=== PATIENT | male | born 1960 | race Caucasian/White ===

== ENCOUNTER → 2018-03-27 | Outpatient (REF) | payer OTHER ==
[2018-03-28 11:13] LABS: BASO # 0.1 10^3/uL (0.0-0.2); BASO % 0.7 % (0.0-1.0); EOS # 0.1 10^3/uL (0.0-0.50); EOS % 0.9 % (0.0-3.0); HEMATOCRIT 48.3 % (42.0-52.0); LYMPH # 1.5 10^3/uL (1.5-4.5); LYMPH % 14.2 % (24.0-44.0); MEAN CORPUSCULAR HGB CONC 33.1 g/dl (32.0-36.5); MEAN CORPUSCULAR VOLUME 99.6 fl (80.0-96.0); MONO # 0.8 10^3/uL (0.0-0.8); MONO % 7.6 % (0.0-5.0); NEUTROPHILS # 8.2 10^3/uL (1.8-7.7); NEUTROPHILS % 76.4 % (36.0-66.0); PLATELET COUNT, AUTOMATED 275 10^3/uL (150-450); RED BLOOD COUNT 4.85 10^6/uL (4.30-6.10); WHITE BLOOD COUNT 10.8 10^3/uL (4.0-10.0)
[2018-03-28 11:23] LABS: ALBUMIN 4.4 GM/DL (3.2-5.2); ALT/SGPT 31 U/L (12-78); BILIRUBIN,TOTAL 0.4 MG/DL (0.2-1.0); BLOOD UREA NITROGEN 20 MG/DL (7-18); CALCIUM LEVEL 9.3 MG/DL (8.8-10.2); CARBON DIOXIDE LEVEL 28 MEQ/L (21-32); CHLORIDE LEVEL 102 MEQ/L (98-107); CHOLESTEROL LEVEL 186 MG/DL (<200); GLOMERULAR FILTRATION RATE > 60.0 (>49); GLUCOSE, FASTING 87 MG/DL (70-100); HDL CHOLESTEROL 40 MG/DL (>40); LDL CHOLESTEROL 122 MG/DL (<100); NON-HDL-C 146 MG/DL; POTASSIUM SERUM 4.9 MEQ/L (3.5-5.1); SODIUM LEVEL 138 MEQ/L (136-145); TOTAL PROTEIN 7.6 GM/DL (6.4-8.2); TRIGLYCERIDES LEVEL 119 MG/DL (<150)
[2018-03-28 11:34] LABS: ERYTHROCYTE SEDIMENTATION RATE 4 mm/hr (0-20)
[2018-03-29 11:00] LABS: HEPATITIS C VIRUS ABY INDEX 0.1 INDEX (<0.8)
== END ==
LOC: M SFHCCLAY 15:07
PROVIDERS: ATTEND Family Medicine
DX: Z12.5 Encounter for screening for malignant neoplasm of prostate (principal); Z11.59 Encounter for screening for other viral diseases; Z13.220 Encounter for screening for lipoid disorders; M25.551 Pain in right hip

== ENCOUNTER → 2018-03-27 | Outpatient (CLI) | payer OTHER ==
--- NOTE | 2018-03-28 01:12 | REP ---
Clinical: Right hip pain. Technique: Neutral and frog lateral views of the right hip. Findings: Early moderate arthritic changes include increased sclerosis to the acetabulum with associated joint space narrowing and marginal spurring. Osteophyte formation along the inferior margin of the femoral head is also best identified on the frog lateral view. No significant periarticular calcifications. No obvious effusion. Surrounding soft tissues are unremarkable. No obvious acute fracture. Impression: Early moderate arthritic changes.
== END ==
LOC: M CLY 15:28
PROVIDERS: ATTEND Family Medicine
DX: M16.11 Unilateral primary osteoarthritis, right hip (principal); M25.751 Osteophyte, right hip; M25.551 Pain in right hip

== ENCOUNTER → 2020-01-28 | Outpatient (CLI) | payer OTHER ==
[2020-01-28 08:43] LABS: HEMATOCRIT 50.2 % (42.0-52.0); HEMOGLOBIN 16.3 g/dl (13.5-17.5); MEAN CORPUSCULAR HEMOGLOBIN 31.7 pg (27.0-33.0); MEAN CORPUSCULAR HGB CONC 32.5 g/dl (32.0-36.5); MEAN CORPUSCULAR VOLUME 97.7 fl (80.0-96.0); PLATELET COUNT, AUTOMATED 273 10^3/uL (150-450); RED BLOOD COUNT 5.14 10^6/uL (4.30-6.10); WHITE BLOOD COUNT 10.1 10^3/uL (4.0-10.0)
[2020-01-28 08:54] LABS: INR 0.88; PROTHROMBIN TIME 12.1 SECONDS (12.5-14.3)
[2020-01-28 09:01] LABS: ERYTHROCYTE SEDIMENTATION RATE 1 mm/hr (0-20)
[2020-01-28 09:26] LABS: ALBUMIN 4.1 GM/DL (3.2-5.2); ALT/SGPT 40 U/L (12-78); BILIRUBIN,TOTAL 0.7 MG/DL (0.2-1.0); BLOOD UREA NITROGEN 22 MG/DL (7-18); CALCIUM LEVEL 9.3 MG/DL (8.8-10.2); CARBON DIOXIDE LEVEL 29 MEQ/L (21-32); CHLORIDE LEVEL 103 MEQ/L (98-107); GLOMERULAR FILTRATION RATE > 60.0 (>49); GLUCOSE, FASTING 100 MG/DL (70-100); POTASSIUM SERUM 4.7 MEQ/L (3.5-5.1); SODIUM LEVEL 137 MEQ/L (136-145); TOTAL PROTEIN 7.2 GM/DL (6.4-8.2)
--- NOTE | 2020-01-28 15:17 | REP ---
INDICATION: RIGHT TOTAL HIP ARTHROPLASTY/PREOP/LAB COMPARISON: 04/06/2014 TECHNIQUE: PA and lateral. FINDINGS: Mediastinum and cardiac silhouette are normal. Lung cooper demonstrate chronic interstitial changes. No focal consolidation, effusion, or pneumothorax. Skeletal structures intact. 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 No focal consolidation or effusion. <Electronically signed by Tiago Juarez > 01/28/20 0524
== END ==
LOC: M LAB 08:15
PROVIDERS: ATTEND Orthopaedic Surgery
DX: Z01.818 Encounter for other preprocedural examination (principal); M16.11 Unilateral primary osteoarthritis, right hip; R93.89 Abnormal findings on diagnostic imaging of other specified body structures

== ENCOUNTER → 2020-02-07 | Outpatient (CLI) | payer OTHER ==
[~2020-02-07] MED LIST: IBUP200C29 PO; PERC5TAB12 PO; XARE10TA PO
== END ==
LOC: M LABSMTC 08:24
PROVIDERS: ATTEND Anesthesiology
DX: Z01.812 Encounter for preprocedural laboratory examination (principal); Z20.828 Contact with and (suspected) exposure to other viral communicable diseases

== ENCOUNTER 2020-02-11 07:35 | Inpatient (IN) | payer OTHER ==
--- NOTE | 2020-02-03 14:42 | HPE ---
DATE OF ANTICIPATED ADMISSION: 02/11/2020. ATTENDING PHYSICIAN: Dr. Eloy Mckinney. CHIEF COMPLAINT: Right hip pain and stiffness. HISTORY OF PRESENT ILLNESS: This is a 60-year-old male patient with progressively worsening right hip pain and stiffness who has failed to improve with conservative management. He has elected for surgery for his continued symptoms. He has pain with weightbearing activities and activities of daily living. He has been consented by Dr. Eloy Mckinney for a right total hip arthroplasty. X-rays notable for end-stage degenerative changes of the right hip. Medical optimization not present for review. MEDICAL CONDITIONS: Symptomatic osteoarthritis of right hip. SURGICAL PROCEDURES: A knee scope. ALLERGIES: No known drug allergies. CURRENT MEDICATIONS: [id number] Motrin; he knows to discontinue that at least five days prior to surgery. FAMILY HISTORY: Arthritis and cancer. REVIEW OF SYSTEMS: Denies chest pain, shortness of breath or cough. Denies difficulty breathing. Denies abdominal pain. Denies nausea or vomiting. Notes persistent hip with weightbearing activities on the right side. Denies exposure to COVID-19. SOCIAL HISTORY: He does not smoke. He does occasionally use alcohol. PHYSICAL EXAMINATION TODAY: Reveals a well-nourished, well developed male patient who walks with a limping gait, he favors his right side. There is decreased external rotation on exam. Internal rotation is essentially zero. Straight leg raise testing is negative. Calf is soft and nontender to palpation. Skin around the hip is intact. No erythema, edema or ecchymosis. Neck is supple, without adenopathy or JVD. Lungs; clear to auscultation, without rales or wheeze. Heart; regular rate and rhythm. Abdomen; bowel sounds are present. Current vital signs; height 76 inches, weight 233 pounds, temperature 97.5, blood pressure 132/76, pulse 80, respirations 16. LABORATORY DATA: PT 12.1, INR 0.88, sed rate 1. WBC 10, RBC 5, hemoglobin 16.3, hematocrit 50.2. Glucose 100, BUN 22, creatinine 1.1, sodium 137, potassium 4.7. IMAGING STUDIES: Chest x-ray; not present for review. EKG; sinus rhythm. IMPRESSION: Symptomatic osteoarthritis of right hip. PLAN: He is consented by Dr. Mckinney for a right total hip arthroplasty. We reviewed his postoperative and preoperative instructions to include importance of n.p.o., what n.p.o. means, discontinue all NSAIDs five days prior to surgery, and make sure to call the day before to find out what time he needs to be there. We discussed also the importance of being on time. He also needs to self quarantine after his COVID testing. He understands the surgical procedure. He understands his instructions. All of his questions were answered. ANDI
[2020-02-11] VITALS (7 sets, daily range): BP systolic 114–144; BP diastolic 48–76
[~2020-02-11] VITALS: Ht 193 cm; Wt 106.6 kg
[~2020-02-11 07:35] MED LIST changes: +BUPIVACAINE LIPOSOME/PF 1.3% 20ML VIAL (13.3MG/ML)(EXPAREL)(C9290 PER1MG) As Ordered ONE; +EPINEPHrine INJ 1 MG/ML 1ML AMP As Ordered ONE; +LR 1,000 ML IV ONE; -PERC5TAB12 PO; +TRANEXAMIC ACID 100 MG/ML 10ML VIAL As Ordered ONE; -XARE10TA PO; +ceFAZolin 1GM VIAL (J0690 PER 500MG) As Ordered ONE; +ceFAZolin SOD 2 GM in IV 1 EA IV ONE
[2020-02-11] MEDS ORDERED: BUPIVACAINE HCL 0.25% 10ML VIAL As Ordered ONE (09:46)
--- NOTE | 2020-02-11 09:55 | IPN ---
PROGRESS NOTE DATE: 02/11/2020 SUBJECTIVE: The patient is seen and examined and he wishes to go ahead with a right total knee arthroplasty. He understands the nature of the procedure, the risks of bleeding, infection, damage to nerves or vessels, persistent pain, wear, loosening, dislocation, leg length inequality, blood clots, medical problems, and among others.
[2020-02-11] MEDS ORDERED: ONDANSETRON 4MG/2ML VIAL As Ordered ONE (10:40)
[2020-02-11] MEDS ORDERED: ROCURONIUM BROMIDE 50 MG/5 ML VIAL As Ordered ONE (10:40)
[2020-02-11] MEDS ORDERED: propofoL 200 MG/20 ML VIAL As Ordered ONE (10:40)
[2020-02-11] MEDS ORDERED: MIDAZOLAM INJ 2MG/2ML VIAL (J2250 PER 1MG) As Ordered ONE (10:40)
[2020-02-11] MEDS ORDERED: fentaNYL 100 MCG/2 ML INJECTION (J3010) As Ordered ONE (10:40)
[2020-02-11] MEDS ORDERED: LIDOCAINE 2% 100MG/5ML SDV (FOR ANES.) As Ordered ONE (10:40)
[2020-02-11] MEDS ORDERED: METOCLOPRAMIDE INJ 10MG/2ML VIAL (J2765 PER 1) As Ordered ONE (10:41)
[2020-02-11] MEDS ORDERED: KETOROLAC 60MG 2ML VIAL As Ordered ONE (10:42)
[2020-02-11] MEDS ORDERED: dexameTHASONE 4 MG/ML 1ML VIAL (J1100 PER 1MG) As Ordered ONE (10:42)
[2020-02-11] MEDS ORDERED: PHENYLephrine HCL 500 MCG/5 ML (100MCG/ML) SYRINGE (J2370) As Ordered ONE (10:58)
[2020-02-11] MEDS ORDERED: ePHEDrine SULFATE 25 MG/5 ML(5MG/ML) SYRINGE As Ordered ONE (10:58)
[2020-02-11] MEDS ORDERED: SUGAMMADEX SODIUM 500 MG/5 ML VIAL (BRIDION) As Ordered ONE (11:02)
[2020-02-11] MEDS ORDERED: MORPHINE 4 MG/ML 1ML VIAL/SYRINGE (J2270) IV PRN (12:45)
[2020-02-11] MEDS ORDERED: PERCOCET 5MG/325MG TAB PO PRN (12:45)
[2020-02-11] MEDS ORDERED: ACETAMINOPHEN TAB 650MG DOSE (2X325MG) PO PRN (12:45)
[2020-02-11] MEDS ORDERED: METOCLOPRAMIDE INJ 10MG/2ML VIAL (J2765 PER 1) IV PRN (12:45)
[2020-02-11] MEDS ORDERED: fentaNYL 100 MCG/2 ML INJECTION (J3010) IV PRN (12:45)
[2020-02-11] MEDS: LR 1,000 ML IV SCH (12:45)
[2020-02-11] MEDS ORDERED: ONDANSETRON 4MG/2ML VIAL IV PRN ×2 (12:45)
[2020-02-11] MEDS ORDERED: LR 1,000 ML IV SCH (12:45)
[2020-02-11] MEDS ORDERED: MORPHINE 2 MG/ML 1ML VIAL (J2270) IV PRN (12:45)
--- NOTE | 2020-02-11 12:53 | REP ---
INDICATION: POST OP IN PACU COMPARISON: None. TECHNIQUE: AP and cross-table lateral views. FINDINGS: The patient is noted to be status post right hip arthroplasty with normal appearance and positioning to the femoral and acetabular components. Overlying postsurgical changes are appreciated. IMPRESSION: Status post right hip arthroplasty. <Electronically signed by Tiago Juarez > 02/11/20 [id number]
--- NOTE | 2020-02-11 13:58 | RO ---
OPERATIVE NOTE PREOPERATIVE DIAGNOSIS: Right hip osteoarthritis. POSTOPERATIVE DIAGNOSIS: Right hip osteoarthritis. PROCEDURE: Right total hip arthroplasty using a Harnett size 8 high-offset, +1.5, 40 ceramic ball and 58 acetabular component. SURGEON: Eloy Mckinney M.D. WIRE DRAWING MACHINE TENDER: Toro Gibson PA-C ANESTHESIA: Spinal followed by general. ESTIMATED BLOOD LOSS: 200. COMPLICATIONS: None. PROCEDURE: The patient was taken to the operating room and placed in the supine position. After spinal anesthesia was induced, the spinal was not effective enough so he was converted to a general. We then turned him to the left lateral decubitus position on the Wilson positioner. All areas were padded appropriately. The right hip was prepped and draped in the usual sterile fashion. A timeout was performed and a longitudinal incision was made over the lateral aspect of the right hip. Sharp dissection was carried down through the subcutaneous tissue and exposed the fascia judy. I then incised the fascia judy and exposed the abductors. Anterior 40% or so of the abductors were divided off as we externally rotated the femur and exposed the hip and dislocated without too much difficulty. I then used the canal initiating reamer, the canal finding reamer and the lateralizing reaming on the femoral side and then sequentially reamed up to a size 8 which had good purchase. The neck cut was then made at about 3/4 of a fingerbreadth up from the lesser trochanter. We directed our attention was to the acetabulum. Anterior and posterior retractors were placed. We removed soft tissue from around the acetabulum and then sequentially reamed up to a size 57 which had excellent bleeding bone and very solid bone. There was evidence of anterior and posterior osteophytes. I irrigated, then impacted in the cup. I had medialized it some. The cup was impacted in an appropriate amount of anteversion and horizontal tilt. A size 58 was used. I then placed the acetabular liner which was a 58 x 40, impacted this in placed and then removed any osteophytes anteriorly and posteriorly which were actually surprisingly small, more substantial posteroinferiorly. The canal was then prepared. I sequentially broached up to a size 8 which I was able to get almost seated down to the neck cut but I had an excellent fit and fill and then I trialed off this several times with various neck and offset combinations and decided on a high offset, +1.5. We then removed the trial components, irrigated again as I had multiple times and impacted in the size 8 high offset stem which I was able to get seated down to the previous level of the broach. I dried the Lauren taper and placed a +1.5/40 ceramic head, impacted this in place, made sure it was well seated. We then reduced the hip and put the hip through a range of motion and I was very pleased as I was with the trial components with the stability and range of motion. Soft tissue's tension seemed appropriate. He had excellent stability of flexion, internal rotation and extension, external rotation with about 1-2 mm of shuck. The wound was then copiously irrigated. I then repaired the minimus with #1 Vicryl suture and the abductor with #1 Vicryl suture with a solid repair noted. I then placed the Exparel and the TXA deep in the wound and then irrigated again following a couple minutes. We closed the fascia judy with #1 Vicryl suture in running Stratafix. The wound was irrigated. The subcu was closed with 2-0 Vicryl and the skin with thom. A sterile dressing was applied and he was taken to the recovery room in stable condition. There were no known complications. The plan will be routine postop. The topographical field assistant was instrumental in holding retractors and assisting in reducing and dislocating the hip and assisting in wound closure.
[2020-02-11] MEDS ORDERED: MORPHINE 2 MG/ML 1ML VIAL (J2270) IV ONE (17:15)
[2020-02-11] MEDS: CYCLOBENZAPRINE 10MG TABLET PO PRN (17:27)
[2020-02-11] MEDS ORDERED: KETOROLAC 30 MG/ML 1ML VIAL IV ONE (17:30)
[2020-02-11] MEDS: ceFAZolin SOD 2 GM in IV 1 EA IV SCH (18:28)
[2020-02-11] MEDS: PERCOCET 5MG/325MG TAB PO PRN (18:29)
[2020-02-12] MEDS: PERCOCET 5MG/325MG TAB PO PRN ×6 (00:47→22:05)
[2020-02-12] MEDS: ceFAZolin SOD 2 GM in IV 1 EA IV SCH (00:48)
[2020-02-12] MEDS: LR 1,000 ML IV SCH (03:03)
[2020-02-12 05:53] LABS: HEMATOCRIT 44.8 % (42.0-52.0); HEMOGLOBIN 14.5 g/dl (13.5-17.5); MEAN CORPUSCULAR HEMOGLOBIN 31.5 pg (27.0-33.0); MEAN CORPUSCULAR HGB CONC 32.4 g/dl (32.0-36.5); MEAN CORPUSCULAR VOLUME 97.4 fl (80.0-96.0); PLATELET COUNT, AUTOMATED 248 10^3/uL (150-450); WHITE BLOOD COUNT 11.8 10^3/uL (4.0-10.0)
[2020-02-12 06:00] VITALS: BP 132/61
[2020-02-12] MEDS ORDERED: PERC5TAB12 PO (06:01)
[2020-02-12] MEDS ORDERED: XARE10TA PO (06:01)
[2020-02-12] MEDS: MIRALAX *UNIT DOSE* 17GM PACKET PO SCH (09:00)
[2020-02-12] MEDS: MOM 30ML SUSPENSION UDC PO SCH (09:00)
[2020-02-12] MEDS: CYCLOBENZAPRINE 10MG TABLET PO PRN ×2 (09:02→18:05)
[2020-02-12 09:48] VITALS: BP 125/74
[2020-02-12] MEDS: MORPHINE 15 MG SA TAB PO SCH ×2 (10:52→21:14)
[2020-02-12 14:36] VITALS: BP 121/72
[2020-02-12] MEDS ORDERED: RIVAROXABAN 10 MG TAB (XARELTO) PO SCH (18:00)
[2020-02-12 22:00] VITALS: BP 122/72
[2020-02-13] MEDS: CYCLOBENZAPRINE 10MG TABLET PO PRN (02:58)
[2020-02-13] MEDS: PERCOCET 5MG/325MG TAB PO PRN ×2 (02:59→13:40)
[2020-02-13 06:00] VITALS: BP 112/68
[2020-02-13 06:55] LABS: HEMATOCRIT 44.7 % (42.0-52.0); HEMOGLOBIN 14.4 g/dl (13.5-17.5); MEAN CORPUSCULAR HEMOGLOBIN 31.5 pg (27.0-33.0); MEAN CORPUSCULAR HGB CONC 32.2 g/dl (32.0-36.5); MEAN CORPUSCULAR VOLUME 97.8 fl (80.0-96.0); PLATELET COUNT, AUTOMATED 231 10^3/uL (150-450); RED BLOOD COUNT 4.57 10^6/uL (4.30-6.10); WHITE BLOOD COUNT 11.3 10^3/uL (4.0-10.0)
[2020-02-13] MEDS: MIRALAX *UNIT DOSE* 17GM PACKET PO SCH (08:13)
[2020-02-13] MEDS: MORPHINE 15 MG SA TAB PO SCH (08:14)
[2020-02-13] MEDS: MOM 30ML SUSPENSION UDC PO SCH (09:00)
[2020-02-13] MEDS ORDERED: FLUBLOK(EGG FREE)(QUAD)INFLUENZA VACC 0.5ML SYRINGE 18YRS & OLDER IM ONE (09:00)
== END 2020-02-13 15:10 | disposition home or self-care (01) | DRG 301 ==
LOC: M OR 07:35 → M MS5PR 14:17
PROVIDERS: ADMIT Orthopaedic Surgery; ATTEND Orthopaedic Surgery
PROC: 0SR904Z Replacement of Right Hip Joint with Ceramic on Polyethylene Synthetic Substitute, Open Approach (ICD-10-PCS; principal; 2020-02-11 09:35)
DX: M16.11 Unilateral primary osteoarthritis, right hip (principal); R26.89 Other abnormalities of gait and mobility

== ENCOUNTER → 2021-01-24 | Outpatient (REF) | payer OTHER ==
[~2021-01-24] MED LIST changes: -BUPIVACAINE LIPOSOME/PF 1.3% 20ML VIAL (13.3MG/ML)(EXPAREL)(C9290 PER1MG) As Ordered ONE; -EPINEPHrine INJ 1 MG/ML 1ML AMP As Ordered ONE; -LR 1,000 ML IV ONE; +PERC5TAB12 PO; -TRANEXAMIC ACID 100 MG/ML 10ML VIAL As Ordered ONE; +XARE10TA PO; -ceFAZolin 1GM VIAL (J0690 PER 500MG) As Ordered ONE; -ceFAZolin SOD 2 GM in IV 1 EA IV ONE
[2021-01-24 11:55] LABS: BASO # 0.1 10^3/uL (0.0-0.2); BASO % 1.1 % (0.0-1.0); EOS # 0.1 10^3/uL (0.0-0.5); EOS % 1.5 % (0.0-3.0); HEMATOCRIT 52.5 % (42.0-52.0); HEMOGLOBIN 17.3 g/dl (13.5-17.5); LYMPH # 1.4 10^3/uL (1.5-5.0); MEAN CORPUSCULAR HEMOGLOBIN 32.6 pg (27.0-33.0); MEAN CORPUSCULAR VOLUME 99.1 fl (80.0-96.0); MONO # 0.7 10^3/uL (0.0-0.8); NEUTROPHILS # 3.8 10^3/uL (1.5-8.5); NEUTROPHILS % 63.1 % (36.0-66.0); PLATELET COUNT, AUTOMATED 310 10^3/uL (150-450); WHITE BLOOD COUNT 6.1 10^3/uL (4.0-10.0)
[2021-01-24 12:22] LABS: ALBUMIN 4.1 GM/DL (3.2-5.2); ALT/SGPT 38 U/L (12-78); BILIRUBIN,TOTAL 0.8 MG/DL (0.2-1.0); BLOOD UREA NITROGEN 25 MG/DL (7-18); CALCIUM LEVEL 9.8 MG/DL (8.8-10.2); CARBON DIOXIDE LEVEL 28 MEQ/L (21-32); CHLORIDE LEVEL 102 MEQ/L (98-107); CREATININE FOR GFR 1.12 MG/DL (0.70-1.30); GLOMERULAR FILTRATION RATE > 60.0 (>49); GLUCOSE, FASTING 116 MG/DL (70-100); POTASSIUM SERUM 4.9 MEQ/L (3.5-5.1); SODIUM LEVEL 136 MEQ/L (136-145); TOTAL PROTEIN 7.8 GM/DL (6.4-8.2)
== END ==
LOC: M SFHCCLAY 08:53
PROVIDERS: ATTEND Physician Assistant
DX: R13.10 Dysphagia, unspecified (principal)

== ENCOUNTER → 2021-02-22 | Outpatient (CLI) | payer OTHER ==
[~2021-02-22] MED LIST changes: +ISOVUE-370 76% 100ML VIAL As Ordered ONE
--- NOTE | 2021-02-22 08:46 | REPVR ---
PROCEDURE INFORMATION: Exam: CT Neck With Contrast Exam date and time: 02/22/2021 8:05 AM Age: 61 years old Clinical indication: Neck pain; Additional info: Enlarged lymph nodes TECHNIQUE: Imaging protocol: Computed tomography images of the neck with contrast. Radiation optimization: All CT scans at this facility use at least one of these dose optimization techniques: automated exposure control; mA and/or kV adjustment per patient size (includes targeted exams where dose is matched to clinical indication); or iterative reconstruction. Contrast material: ISO 370; Contrast volume: 75 ml; Contrast route: INTRAVENOUS (IV); COMPARISON: CT ANGIO CHEST 04/06/2014 4:16 PM FINDINGS: Nasopharynx: Unremarkable. Oropharynx: Unremarkable. No significant tonsillar enlargement. Hypopharynx: Unremarkable. Larynx: Unremarkable. Normal epiglottis. Retropharyngeal space: Unremarkable. Submandibular/Parotid glands: Normal. Glands are normal in size. Thyroid: Normal. No enlarged or calcified nodules. Lymph nodes: Unremarkable. No lymphadenopathy. Trachea: Visualized trachea is unremarkable. Lungs: Unremarkable as visualized. Bones/joints: Unremarkable. No acute fracture. Soft tissues: Unremarkable. No significant soft tissue swelling. IMPRESSION: No acute findings. Electronically signed by: Lis Porter On 02/22/2021 08:46:10 AM
== END ==
LOC: M RAD 07:38
PROVIDERS: ATTEND Physician Assistant
DX: R59.9 Enlarged lymph nodes, unspecified (principal)
CPT/HCPCS: 70491; Q9967

== ENCOUNTER → 2023-11-14 | Outpatient (REF) | payer MEDICARE, MEDICAID ==
[~2023-11-14] MED LIST changes: -ISOVUE-370 76% 100ML VIAL As Ordered ONE
[2023-11-14 19:15] LABS: BASO # 0.1 10^3/uL (0.0-0.2); BASO % 0.9 % (0.0-1.0); EOS # 0.1 10^3/uL (0.0-0.5); EOS % 1.5 % (0.0-3.0); HEMATOCRIT 54.1 % (42.0-52.0); HEMOGLOBIN 18.4 g/dl (13.5-17.5); LYMPH # 1.3 10^3/uL (1.5-5.0); LYMPH % 23.2 % (24.0-44.0); MEAN CORPUSCULAR HEMOGLOBIN 33.3 pg (27.0-33.0); MONO # 0.6 10^3/uL (0.0-0.8); MONO % 10.9 % (2.0-8.0); NEUTROPHILS # 3.4 10^3/uL (1.5-8.5); NEUTROPHILS % 63.1 % (36.0-66.0); PLATELET COUNT, AUTOMATED 265 10^3/uL (150-450); RED BLOOD COUNT 5.52 10^6/uL (4.30-6.10); WHITE BLOOD COUNT 5.4 10^3/uL (4.0-10.0)
[2023-11-14 19:29] LABS: HEMOGLOBIN A1c 5.5 % (4.0-6.0)
[2023-11-14 19:42] LABS: ALBUMIN 4.3 G/DL (3.2-5.2); ALKALINE PHOSPHATASE 42 U/L (46-116); ALT/SGPT 49 U/L (7.0-40); AST/SGOT 21 U/L (<34); BILIRUBIN,TOTAL 0.9 MG/DL (0.3-1.2); BLOOD UREA NITROGEN 22 MG/DL (9-23); CALCIUM LEVEL 9.8 MG/DL (8.3-10.6); CARBON DIOXIDE LEVEL 30 MMOL/L (20-31); CHLORIDE LEVEL 101 MMOL/L (98-107); CHOLESTEROL LEVEL 209 MG/DL (<200); CHOLESTEROL RISK RATIO 4.91 (<5); GLOMERULAR FILTRATION RATE > 60.0 (>49); GLUCOSE, FASTING 100 MG/DL (74-106); HDL CHOLESTEROL 42.5 MG/DL (>40); LDL CHOLESTEROL 152.9 MG/DL (<100); NON-HDL-C 166.5 MG/DL; POTASSIUM SERUM 5.1 MMOL/L (3.5-5.1); SODIUM LEVEL 135 MMOL/L (136-145); TOTAL PROTEIN 7.6 G/DL (5.7-8.2); TRIGLYCERIDES LEVEL 68 MG/DL (<150)
[2023-11-14 19:43] LABS: FREE T4 1.58 NG/DL (0.89-1.76); THYROID STIMULATING HORMONE 2.179 uIU/ML (0.55-4.78)
== END ==
LOC: M SFHCCLAY 08:59
PROVIDERS: ATTEND Nurse Practitioner Family
DX: R23.9 Unspecified skin changes (principal); Z13.220 Encounter for screening for lipoid disorders; Z13.1 Encounter for screening for diabetes mellitus; Z79.899 Other long term (current) drug therapy; Z12.5 Encounter for screening for malignant neoplasm of prostate
CPT/HCPCS: 80053; 80061; 83036; 84439; 84443; 85025; G0103

== ENCOUNTER → 2024-09-25 | Outpatient (REF) | payer MEDICARE ==
[~2024-09-25] MED LIST changes: +CARD40TA PO; +ELIQ5TAB PO
[2024-09-25 13:48] LABS: BASO # 0.1 10^3/uL (0.0-0.2); BASO % 1.2 % (0.0-1.0); EOS # 0.1 10^3/uL (0.0-0.5); EOS % 2.1 % (0.0-3.0); LYMPH # 1.0 10^3/uL (1.5-5.0); LYMPH % 18.8 % (24.0-44.0); MONO # 0.6 10^3/uL (0.0-0.8); MONO % 12.0 % (2.0-8.0); NEUTROPHILS # 3.4 10^3/uL (1.5-8.5); NEUTROPHILS % 65.5 % (36.0-66.0); PLATELET COUNT, AUTOMATED 276 10^3/uL (150-450)
[2024-09-25 14:21] LABS: CK-MB VALUE MASS 4.8 NG/ML (<3.6)
[2024-09-25 14:22] LABS: ALT/SGPT 116.0 U/L (7.0-40); AST/SGOT 35.0 U/L (<34); CALCIUM LEVEL 9.3 MG/DL (8.3-10.6); CARBON DIOXIDE LEVEL 29.0 MMOL/L (20-31); CHLORIDE LEVEL 102.0 MMOL/L (98-107); CPK CREATINE PHOSPHOKINASE 194.0 U/L (46-171); CREATININE FOR GFR 1.37 MG/DL (0.70-1.30); GLOMERULAR FILTRATION RATE 56.9 (>49); MB/CK RELATIVE INDEX 2.47 (< OR =4); POTASSIUM SERUM 4.4 MMOL/L (3.5-5.1); SODIUM LEVEL 141.0 MMOL/L (136-145)
[2024-09-25 14:25] LABS: FREE T4 1.63 NG/DL (0.89-1.76)
== END ==
LOC: M SFHCCLAY 08:02
PROVIDERS: ATTEND Nurse Practitioner Family
DX: I48.91 Unspecified atrial fibrillation (principal); R74.8 Abnormal levels of other serum enzymes

== ENCOUNTER → 2024-10-16 | Outpatient (CLI) | payer MEDICARE | LOC: M SLEEP HO 11:01 | PROVIDERS: ATTEND Nurse Practitioner Family | DX: G47.33 Obstructive sleep apnea (adult) (pediatric) (principal) ==

== ENCOUNTER → 2024-12-05 | Outpatient (CLI) | payer MEDICARE, MEDICAID | LOC: M PLAIMG 07:47 | PROVIDERS: ATTEND Nurse Practitioner Family | DX: I08.0 Rheumatic disorders of both mitral and aortic valves (principal); I48.91 Unspecified atrial fibrillation ==

== ENCOUNTER → 2025-01-01 | Outpatient (CLI) | payer MEDICARE, MEDICAID | LOC: M PLARAD 10:10 | PROVIDERS: ATTEND Nurse Practitioner Family | DX: H53.9 Unspecified visual disturbance (principal); R29.818 Other symptoms and signs involving the nervous system ==